=== PATIENT | female | born 1965 | race Caucasian/White ===

== ENCOUNTER → 2019-11-14 00:01 | Outpatient (BNVA) | payer BC, SELFPAY | PROVIDERS: Family Provider Family Medicine; PCP Family Medicine; Referring Provider Family Medicine; Visit Provider Family Medicine | DX: E28.39 Other primary ovarian failure (principal); J42 Unspecified chronic bronchitis; D64.9 Anemia, unspecified; F48.8 Other specified nonpsychotic mental disorders | CPT/HCPCS: 36416; 82962; 85025 ==

== ENCOUNTER → 2020-09-16 09:33 | Outpatient (BNVA) | payer BC, SELFPAY | PROVIDERS: Family Provider Family Medicine; PCP Family Medicine; Visit Provider Family Medicine | DX: R73.9 Hyperglycemia, unspecified (principal); E28.39 Other primary ovarian failure; H43.13 Vitreous hemorrhage, bilateral; K21.9 Gastro-esophageal reflux disease without esophagitis; G43.009 Migraine without aura, not intractable, without status migrainosus; I87.2 Venous insufficiency (chronic) (peripheral) | CPT/HCPCS: 36416; 82962 ==

== ENCOUNTER 2023-04-29 00:12 | Emergency (ER) | payer OTHER, BC, SELFPAY ==
[2023-04-29] VITALS (10 sets, daily range): BP systolic 113–138; BP diastolic 37–82; PULSE 64–82; RESP 16–20; TEMP 36.6; O2SAT 95–100; BMI 32.3
--- NOTE | 2023-04-29 00:54 | CTR_ITS ---
PROCEDURE INFORMATION: Exam: CT Abdomen And Pelvis Without Contrast Exam date and time: 04/29/2023 1:41 AM Age: 58 years old Clinical indication: Abdominal pain; Prior surgery; Surgery date: 6+ months; Surgery type: Gastric bypass. Gb. Hernia. Tubal. Patient HX: C/O left flank pain. ; Additional info: L flank pain TECHNIQUE: Imaging protocol: Computed tomography of the abdomen and pelvis without contrast. Radiation optimization: All CT scans at this facility use at least one of these dose optimization techniques: automated exposure control; mA and/or kV adjustment per patient size (includes targeted exams where dose is matched to clinical indication); or iterative reconstruction. REPORTING DATA: Count of CT and Cardiac NM exams in prior 12 months: This patient has received 0 known CTs and 0 known cardiac nuclear medicine studies in the 12 months prior to the current study. COMPARISON: No relevant prior studies available. RADIATION DOSE METRICS: Total DLP (mGy-cm): 684.92 FINDINGS: Diaphragm: Possible residual small hiatal hernia versus postoperative change. Liver: Normal. No mass. Gallbladder and bile ducts: Normal. No calcified stones. No ductal dilation. Pancreas: Normal. No ductal dilation. Spleen: Calcified splenic granulomas. One or more accessory splenules. Adrenal glands: Normal. No mass. Kidneys and ureters: 6 mm left UPJ stone with moderate left hydronephrosis. Stomach and bowel: Left bowel anastomosis consistent with previous partial bowel resection. Appendix: No evidence of appendicitis. Intraperitoneal space: Unremarkable. No free air. No significant fluid collection. Vasculature: Unremarkable. No abdominal aortic aneurysm. Lymph nodes: Unremarkable. No enlarged lymph nodes. Urinary bladder: Unremarkable as visualized. Reproductive: Unremarkable as visualized. Bones/joints: Unremarkable. No acute fracture. Soft tissues: Unremarkable. Other findings: Postoperative changes over the gastroesophageal junction. . CT/CT kidney stone [id number] IMPRESSION: 6 mm left UPJ stone with moderate left hydronephrosis.
[2023-04-29 01:10] LABS: Basophils % 0.4 %; Eosinophils # 0.1 10^3/uL (0.0-0.8); Eosinophils % 1.7 %; Hematocrit 42.1 % (37.0-47.0); Hemoglobin 13.6 g/dL (11.5-15.3); Lymphocytes % 12.4 %; Mean Corpuscular HGB Conc 32.3 g/dL (30.0-36.0); Mean Corpuscular Hemoglobin 31.6 pg (28.0-34.0); Mean Corpuscular Volume 97.9 fl (81-99); Monocytes # 0.5 10^3/uL (0.2-0.9); Monocytes % 5.9 %; Neutrophils % 79.3 %; Nucleated Red Blood Cells % 0 %; Platelet Count 197 10^3/cmm (130-400); Red Cell Distribution Width 11.9 % (12.1-15.1); White Blood Count 7.8 10^3/uL (4.0-10.0)
--- NOTE | 2023-04-29 01:12 | W.ED.ABDPA2 ---
HPI - Abdominal Pain General: Chief Complaint: Abdominal Pain Stated Complaint: lt flank pain Time Seen by Provider: 04/29/23 00:49 Source: patient History of Present Illness: 58-year-old female with a history of gastric bypass surgery and hernia surgery. She presents with left-sided flank pain radiating to her left lower quadrant that started around 9 PM. She is nauseated. She has had some dry heaves. She has had some loose stool, but that is common for her. No fever. No dysuria. MD elicited complaint: flank pain Pertinent past history: other Onset (ago): hour(s) Pain Consistency: constant Location: L flank Quality: stabbing Radiation: LLQ Associated Symptoms: Reports diarrhea, nausea and poor appetite; Denies fever(s) and vomiting Review of Systems Const: Denies: fever(s) ENMT: Denies: throat pain Resp: Denies: dyspnea GI: Reports: nausea and diarrhea; Denies: vomiting : Reports: flank pain PFSH ED PFSH: Medical History GERD (gastroesophageal reflux disease) Migraine Venous insufficiency of both lower extremities Social History Smoking and tobacco status: former smoker Alcohol intake: never Substance/Drug Use: never Physical Exam Const: GENERAL APPEARANCE: cooperative and ill appearing (mildly); not frail appearing HENMT: COMMON NORMALS: normocephalic, atraumatic and Normal external nose present HEAD & SCALP: normocephalic and atraumatic FACE & SINUS: normal facial exam and face symmetric NOSE: Normal external nose present Eye: COMMON NORMALS: Equal, round and reactive pupils present and EOMs intact bilaterally PUPIL: Yes Equal, round and reactive pupils present Neck/C-Spine: GENERAL: Yes trachea midline Chest: CHEST: Yes Symmetrical chest wall rise Resp: COMMON NORMALS: normal respiratory effort, No retractions, No use of accessory muscles and clear to auscultation bilaterally AUSCULTATION: clear to auscultation bilaterally Cardio: COMMON NORMALS: regular rate and regular rhythm RATE: regular rate RHYTHM: regular rhythm GI: COMMON NORMALS: Normal to inspection, nondistended, normoactive bowel sounds present : BLADDER/KIDNEY EXAM: Yes CVA tenderness Back/Pelvis: GENERAL BACK: Yes CVA tenderness CVA tenderness: left Extremity: COMMON NORMALS: no pedal edema Neuro: MARY COMA SCALE: document GCS findings Mary coma scale eye opening: Spontaneous Mary coma scale verbal response: Orientated Campbell coma scale motor response: Obey commands Mary coma scale total score: 15 SENSORY EXAM: Yes extremities (intact) Psych: COMMON NORMALS: speech normal SPEECH: Yes normal speech Skin: COMMON NORMALS: no rashes or lesions noted GENERAL SKIN EXAM: no rashes or lesions noted Course Vital Signs: Vital signs: Vital Signs Temperature 97.8 F 04/29/23 00:31 Pulse Rate 79 04/29/23 04:49 Respiratory Rate 18 04/29/23 02:38 Blood Pressure 113/69 04/29/23 04:49 Pulse Oximetry 95 04/29/23 04:49 Oxygen Delivery Me thod Room Air 04/29/23 04:49 MDM - Abdominal Pain Medical Decision Making 58-year-old female with left flank pain. No fever. CBC is normal. BMP is normal. She has a 6 mm UPJ stone on the left. Urinalysis shows urinary tract infection. She has had fluids, antibiotics, pain and nausea medication. With obstructing stone with infection present, must consult urology, which we do not have at this facility. Patient chose [facility]. Call out to them currently. [facility] accepts pending hospitalist acceptance. She remains stable. Will go by EMS this am. Lab Data 04/29/23 00:45 04/29/23 00:45 Labs/Radiology: Radiology Impressions Abdomen/Pelvis CT 04/29/23 00:54 IMPRESSION: 6 mm left UPJ stone with moderate left hydronephrosis. Laboratory Results WBC 7.8 10^3/uL (4.0-10.0) 04/29/23 00:45 RBC 4.30 10^6/uL (4.1-5.3) 04/29/23 00:45 Hgb 13.6 g/dL (11.5-15.3) 04/29/23 00:45 Hct 42.1 % (37.0-47.0) 04/29/23 00:45 MCV 97.9 fl (81-99) 04/29/23 00:45 MCH 31.6 pg (28.0-34.0) 04/29/23 00:45 MCHC 32.3 g/dL (30.0-36.0) 04/29/23 00:45 RDW 11.9 % (12.1-15.1) L 04/29/23 00:45 Plt Count 197 10^3/cmm (130-400) 04/29/23 00:45 MPV 12.0 fL (7.4-10.4) H 04/29/23 00:45 Neut % (Auto) 79.3 % 04/29/23 00:45 Lymph % (Auto) 12.4 % 04/29/23 00:45 Bradley % (Auto) 5.9 % 04/29/23 00:45 Eos % (Auto) 1.7 % 04/29/23 00:45 Baso % (Auto) 0.4 % 04/29/23 00:45 Neut # (Auto) 6.20 10^3/uL (1.8-7.7) 04/29/23 00:45 Lymph # (Auto) 1.0 10^3/uL (0.8-4.8) 04/29/23 00:45 Bradley # (Auto) 0.5 10^3/uL (0.2-0.9) 04/29/23 00:45 Eos # (Auto) 0.1 10^3/uL (0.0-0.8) 04/29/23 00:45 Baso # (Auto) 0.0 10^3/uL (0.0-0.1) 04/29/23 00:45 Nucleated RBC % (auto) 0 % 04/29/23 00:45 Nucleated RBCs # 0.0 /100WBC 04/29/23 00:45 Sodium 137 mmol/L (136-145) 04/29/23 00:45 Potassium 4.3 mmol/L (3.5-5.1) 04/29/23 00:45 Chloride 101 mmol/L (98-107) 04/29/23 00:45 Carbon Dioxide 26 mmol/L (22-29) 04/29/23 00:45 Anion Gap 14.3 (5-19) 04/29/23 00:45 BUN 10 mg/dL (6-20) 04/29/23 00:45 Creatinine 0.8 mg/dL (0.5-0.9) 04/29/23 00:45 GFR Calculation 73.7 mL/min (90-130) L 04/29/23 00:45 Glucose 104 mg/dL (65-115) 04/29/23 00:45 Calculated Osmolality 283 mOsm/kg (285-295) L 04/29/23 00:45 Calcium 9.2 mg/dL (8.5-10.5) 04/29/23 00:45 Total Bilirubin 0.3 mg/dL (0.15-1.2) 04/29/23 00:45 AST 24 U/L (0-32) 04/29/23 00:45 ALT 16 U/L (0-33) 04/29/23 00:45 Alkaline Phosphatase 93 U/L (35-105) 04/29/23 00:45 C-Reactive Protein 3.0 mg/L (0.0-4.9) 04/29/23 00:45 Total Protein 7.0 g/dL (6.6-8.7) 04/29/23 00:45 Albumin 4.5 g/dL (3.5-5.2) 04/29/23 00:45 Globulin 2.5 g/dL (1.3-4.6) 04/29/23 00:45 Urine Color Yellow (Yellow) 04/29/23 02:16 Urine Appearance Hazy (CLEAR) A 04/29/23 02:16 Urine pH 6 (5-7) 04/29/23 02:16 Ur Specific [place] 1.015 (1.005-1.030) 04/29/23 02:16 Urine Protein Trace (Negative) 04/29/23 02:16 Urine Glucose (UA) Norm (Normal) 04/29/23 02:16 Urine Ketones 1+ (Negative) H 04/29/23 02:16 Urine Blood 3+ (Negative) H 04/29/23 02:16 Urine Nitrate Negative (Negative) 04/29/23 02:16 Urine Bilirubin Neg (Negative) 04/29/23 02:16 Urine Urobilinogen 1 mg/dL (Negative) H 04/29/23 02:16 Ur Leukocyte Esterase 2+ (Negative) H 04/29/23 02:16 Urine RBC >100 /hpf (0-2) H 04/29/23 02:16 Urine WBC 25-40 /hpf (0-5) H 04/29/23 02:16 Ur Squamous Epith Cells 0-4 /hpf (0-5) H 04/29/23 02:16 Amorphous Sediment Not Reportable 04/29/23 02:16 Urine Bacteria 3+ /hpf (NONE) H 04/29/23 02:16 Discharge Plan Discharge Patient Disposition: Xfer Short-Term Hosp Clinical Impression: Pyelonephritis, Ureterolithiasis Condition: Stable Referrals: Red Morales MD [Primary Care Provider] - Coding Level of Care Code ED 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
[2023-04-29] MEDS: sodium chloride 0.9% 1,000 ML 999 ML IV (01:18)
[2023-04-29] MEDS: ondansetron 2 mg/ML SDV 2 mL 4 MG IVP (01:19)
[2023-04-29] MEDS: HYDROmorphone 1 mg/mL INJ 1 mL IVP ×2 (01:21→02:35)
[2023-04-29 01:27] LABS: Alanine Aminotransferase 16 U/L (0-33); Albumin Level 4.5 g/dL (3.5-5.2); Alkaline Phosphatase 93 U/L (35-105); Anion Gap 14.3 (5-19); Aspartate Amino Transferase 24 U/L (0-32); Blood Urea Nitrogen 10 mg/dL (6-20); Calcium 9.2 mg/dL (8.5-10.5); Carbon Dioxide 26 mmol/L (22-29); Chloride 101 mmol/L (98-107); Globulin 2.5 g/dL (1.3-4.6); Glomerular Filtration Rate 73.7 mL/min (90-130); Glucose 104 mg/dL (65-115); Osmolality Calculated 283 mOsm/kg (285-295); Potassium 4.3 mmol/L (3.5-5.1); Sodium 137 mmol/L (136-145); Total Bilirubin 0.3 mg/dL (0.15-1.2)
[2023-04-29 02:28] LABS: Add Urine Microscopic? YES; Bilirubin Urine Neg (Negative); Blood Urine 3+ (Negative); Glucose Urine UA Norm (Normal); Ketones Urine 1+ (Negative); Leukocyte Esterase Urine 2+ (Negative); Nitrate Urine Negative (Negative); Protein Urine Trace (Negative); Specific Gravity, Urine 1.015 (1.005-1.030); Urine Appearance Hazy (CLEAR); Urine Color Yellow (Yellow); Urobilinogen Urine 1 mg/dL (Negative); pH Urine 6 (5-7)
[2023-04-29] MEDS: metoclopramide 5 mg/mL SDV 2 mL 10 MG IVP ×2 (02:32→08:32)
[2023-04-29 02:35] LABS: Add Urine Culture? Yes; Bacteria Urine 3+ /hpf; RBC Urine >100 /hpf (0-2); Squamous Epithelial Cell Urine 0-4 /hpf (0-5); WBC Urine 25-40 /hpf (0-5)
[2023-04-29] MEDS: cefTRIAXone 1,000 MG in sodium chloride 0.9% (plus) 50 ML 100 MG IV (02:55)
[2023-04-29] MEDS: sodium chloride 0.9% 1,000 ML 125 ML IV (05:23)
[2023-04-29] MEDS: HYDROmorphone 1 mg/mL INJ 1 mL 0.5 MG IVP ×2 (05:42→08:32)
--- NOTE | 2023-04-29 08:17 | PC.NURSE ---
Report called to DEMAR NICHOLAS to Arabella PATEL. Room 7467/2.
--- NOTE | 2023-04-29 08:34 | PC.PHAR ---
pt states she takes care of her own medications-pt states she takes topiramate 25mg daily ext shows last filled 04/25/23 90d/s 25mg bid-pt states she takes phentermine 15mg daily ext shows last filled 02/25/23 30d/s 15mg bid-pt states she had a old norco rx that she took one half tab on 04/28/23
== END 2023-04-29 09:27 | disposition short-term general hospital (02) ==
PROVIDERS: Emergency Provider Emergency Medicine; PCP Family Medicine
DX: N13.6 Pyonephrosis (principal); Z87.891 Personal history of nicotine dependence
CPT/HCPCS: 74176; 80053; 81001; 85025; 86140; 87077; 87086; 87186; 96365; 96375; 96376; 99284; J0696; J1170; J2405; J2765; J7030

== ENCOUNTER → 2025-06-20 10:07 | Outpatient (BNVA) | payer OTHER, BC, SELFPAY | PROVIDERS: PCP Family Medicine; Visit Provider Family Medicine | DX: Z13.6 Encounter for screening for cardiovascular disorders (principal) | CPT/HCPCS: 80053; 80061; 84439; 84443; 85025 ==

== ENCOUNTER 2025-08-11 10:21 | Day surgery (SDC) | payer OTHER, SELFPAY ==
[2025-08-11] VITALS (7 sets, daily range): BP systolic 113–152; BP diastolic 65–91; PULSE 62–71; RESP 12–18; TEMP 36.2–36.8; O2SAT 96–99; BMI 31.2
--- NOTE | 2025-08-11 11:18 | ANES.PREANE2 ---
Pre-Anesthetic Assessment Height/Weight: Height 1.65 m Weight 85.275 kg Temp Pulse Resp BP Pulse Ox O2 Del Method 97.2 F L 68 18 113/65 96 Room Air 08/11/25 10:42 08/11/25 10:42 08/11/25 10:42 08/11/25 10:42 08/11/25 10:42 08/11/25 10:42 Operation Date: 08/11/25 12:00 Proposed Procedures p Carpal Tunnel Release(Left) - Luciano Segovia MD Familial anesthetic complications: None Was Beta Rosanna taken within 24 hours: N/A Was Clonidine taken within 24 hours: N/A Last intake: Intake Last Liquid Date 08/10/25 Last Liquid Time 23:59 Last Solid Date 08/10/25 Last Solid Time 23:59 Social No alcohol and No tobacco Exam alert, oriented x 3, clear to auscultation bilaterally and regular rate & rhythm Airway Mallampati: Class II Dentition: other (dentures) GI Gastroesophageal Reflux Disease and Hiatal Hernia States she does ok with a couple of pillows under her back and head in terms of experiencing acid reflux Anesthetic Plan ASA status: 2 Anesthesia: MAC Risk of > 500 ml blood loss (7ml/kg in children): No Medications/Allergies Home Medications ?Medication ?Instructions ?Recorded ?Confirmed ?Last Taken ?Type diphenhydramine 25 2 tab PO BEDTIME PRN Sleep 04/29/23 08/08/25 08/07/25 History mg-acetaminophen 500 mg tablet (Tylenol PM Extra Strength) multivitamin 1 tab PO DAILY 04/29/23 08/08/25 08/08/25 History hydrocodone 5 mg-acetaminophen 325 1 tab PO BID PRN pain 10 days #20 06/20/25 08/08/25 3 Months Ago Rx mg tablet tabs ~05/08/25 omeprazole 20 mg capsule,delayed 20 mg PO DAILY 07/15/25 08/08/25 08/08/25 History release Allergies Allergy/AdvReac Type Severity Reaction Status Date / Time morphine Allergy ALGY-Hives Verified 07/23/25 15:16 NSAIDS (Non-Steroidal Allergy Unknown Verified 07/23/25 15:16 Anti-Inflamma Penicillins Allergy hives Verified 07/23/25 15:16 Current Medications Generic Name Dose Route Start Last Admin Trade Name Freq PRN Reason Stop Dose Admin Sodium Chloride 1,000 mls @ 30 mls/hr 08/11/25 10:45 08/11/25 11:07 Sodium Chloride 0.9% IV 08/12/25 10:44 30 mls/hr .Q24H CHRISTEN Administration PFSH Anesthesia Medical History Impacted cerumen, bilateral Chronic pain Carpal tunnel syndrome, left Obesity, Class I, BMI 30-34.9 Acquired cognitive dysfunction Hiatal hernia Venous insufficiency of both lower extremities Migraine GERD (gastroesophageal reflux disease) Surgical History History of total hysterectomy History of cholecystectomy Hx of gastric bypass Hx of hernia repair Family History Mother Diabetes mellitus, type 2 Lymphedema Father Epilepsy Social History Smoking and tobacco/nicotine status: former use of tobacco/nicotine Alcohol intake: current Alcohol intake frequency: holidays/special occasions only Substance/Drug Use: never
--- NOTE | 2025-08-11 12:17 | W.PM.OPSUD ---
Surgery/Procedure H&P Update DATE OF PROCEDURE: August 11, 2025 DATE H&P PERFORMED: 07/17/25 H&P UPDATE INFORMATION: I have reviewed H&P completed within last 30 days, I have examined patient prior to procedure and No changes to prior documentation PREOP DIAGNOSIS: left carpal tunnel syndrome PLANNED PROCEDURE: Operation Date: 08/11/25 12:00 Proposed Procedures p Carpal Tunnel Release(Left) - Luciano Segovia MD
[2025-08-11] MEDS: BUPivacaine 0.5% INJ 30 mL 10 ML INJECTION (12:39)
--- NOTE | 2025-08-11 12:47 | P.OP_ITS ---
Operative Report Date of procedure: August 11, 2025 Surgeon: Luciano Segovia MD Procedure: Preoperative diagnosis: Left carpal tunnel syndrome Postoperative diagnosis: Same Procedure: Left carpal tunnel release Surgeon: Luciano Segovia MD Anesthesia: Local anesthetic with IV sedation EBL: None Indications: Isabela is a 60-year-old white female is been followed in the orthopedic clinic for numbness tingling loss of strength and pain in her left wrist and hand. She has had nerve conduction test consistent with nerve compression at the median nerve level of the carpal tunnel. Therefore after failing all conservative measures she was offered a carpal tunnel release. All risk benefits treatment terms were discussed with her and she was agreeable to this at this time. She is also understanding may take up to 17 weeks to know the final results of this release. She also understands that she may have permanent damage to her median nerve and may have continued symptoms of some level after this. Procedure: After obtaining her consent patient taken the operative room and while still on her hospital [facility] had IV sedation administered. Left hand and arm were prepped and draped usual fashion. After surgical timeout an Esmarch was used to exsanguinate the arm and used as a tourniquet at mid forearm. Palmar surface was anesthetized with half percent Marcaine plain. Once good anesthetic effect and taking place wants to incision was made from the distal flexion crease on the volar surface of the wrist distally along the ulnar side of the mid palmar crease. Sharp dissection taken down down to subcutaneous tis gallo. Sharp dissection taken down through the fatty layer and down to the transverse carpal ligament. This was then divided along the course of the skin incision. The proximal and distal ends of the ligament were then further divided with blunt sharp fashion with small Metzenbaum scissors. Once good decompression was achieved wound was closed with 3-0 Prolene running horizontal mattress suture. Wound was cleaned and dry dressed Xeroform gauze sterile gauze dressing Kerlix wrap and an Jose Angel wrap for compression. Patient was waken transferred cover room stable condition
[2025-08-11] MEDS: ondansetron 2 mg/ML SDV 2 mL 4 MG IVP (12:56)
[2025-08-11] MEDS: HYDROcodone-acetaminophen 5-325 mg Tablet 1 TAB PO (13:32)
--- NOTE | 2025-08-11 14:00 | ANE.PACU2 ---
Inpatient post-anesthesia follow up: Airway intact: Yes Vital signs: Temperature 97.2 F Pulse Rate 65 Respiratory Rate 16 Blood Pressure 152/91 Pulse Oximetry 98 Oxygen Delivery Me thod Room Air Oxygen Flow Rate Fraction of Inspir ed Oxygen Hydration adequate: Yes Nausea and vomiting: No Pain level: 1 Mental status: Baseline
== END 2025-08-11 14:01 | disposition home or self-care (01) ==
PROVIDERS: PCP Family Medicine; Visit Provider Orthopaedic Surgery
PROC: (CPT 64721; principal; 2025-08-11 12:00)
DX: G56.02 Carpal tunnel syndrome, left upper limb (principal); K21.9 Gastro-esophageal reflux disease without esophagitis; K44.9 Diaphragmatic hernia without obstruction or gangrene; Z79.891 Long term (current) use of opiate analgesic; E66.9 Obesity, unspecified; Z68.31 Body mass index [BMI] 31.0-31.9, adult; Z98.84 Bariatric surgery status; Z87.891 Personal history of nicotine dependence
CPT/HCPCS: 64721; J2405; J2704; J3010; J3490; J7030; J9999